=== PATIENT | female | born 2000 | race Caucasian/White ===

== ENCOUNTER 2020-11-26 01:04 | Emergency (ER) | payer BC, SELFPAY ==
[2020-11-26 01:07] VITALS: BP 118/83; PULSE 86; RESP 16; TEMP 36.6; O2SAT 97; BMI 33.5
--- NOTE | 2020-11-26 01:34 | RAD_ITS ---
STUDY: X-RAY - LEFT ANKLE REASON FOR EXAM: Female, 20 years old. Left ankle injury, pain TECHNIQUE: The radiographic view(s) of the ankle. COMPARISON: None. FINDINGS: Normal visualized distal tibia and fibula. Normal medial and lateral malleoli. Normal tibiotalar articulation and ankle mortise. Normal visualized talus and calcaneus. The visualized subtalar, talonavicular, calcaneocuboid and tarsal articulations are normal. There is no demonstrated fracture. Soft tissue swelling over the lateral malleolus. RAD/Ankle min 3 Views IMPRESSION: Soft tissue swelling over the lateral malleolus. No acute fracture or dislocation. Electronically Signed: Дмитрий Ardon MD at 1:57 EDT Tel , Service support ,
--- NOTE | 2020-11-26 01:34 | RAD_ITS ---
STUDY: X-RAY - LEFT TIBIA AND FIBULA REASON FOR EXAM: Female, 20 years old. Left lower leg injury and pain TECHNIQUE: AP and lateral radiographic view(s) of the tibia and fibula were obtained. COMPARISON: None. FINDINGS: Normal visualized tibia. Normal visualized fibula. There is no demonstrated acute fracture. The soft tissue structures are unremarkable. RAD/Tibia & Fibula 2 Views IMPRESSION: Normal x-ray examination of the tibia and fibula. Electronically Signed: Дмитрий Ardon MD at 1:58 EDT Tel , Service support ,
--- NOTE | 2020-11-26 02:49 | EDS_ITS ---
HPI History of Present Illness Chief Complaint: Lower Extremity Injury Narrative Narrative: Patient is a 20-year-old female who states approximately 2 hours prior to arrival she tripped while in the bathroom and rolled her left ankle. She denies striking her head or any loss of consciousness. She states she had some swelling develop after the trauma and has had difficulty walking on the left ankle and with concern for fracture was brought in for evaluation [facility] Medical History Anxiety Depression Allergy/AdvReac Type Severity Reaction Status Date / Time atomoxetine [From Strattera] Allergy SUICIDAL Verified 11/26/20 01:11 THOUGHTS diphenhydramine Allergy HALLUCINATI Verified 11/26/20 01:11 [From Benadryl] ONS Social History Smoking Status: Never smoker ROS ROS ED Constitutional Constitutional ED: Denies chills or fever(s) ENT ENT ED: Denies sore throat Cardiovascular Cardiovascular: Denies chest pain Respiratory/Chest Respiratory/Chest: Denies cough or dyspnea Gastrointestinal Gastrointestinal: Denies abdominal pain, diarrhea, nausea or vomiting Musculoskeletal Musculoskeletal: Reports other Details: Positive left ankle pain ; Denies myalgias Integumentary Denies rash Neurologic Neurologic: Denies headache(s) or paresthesias Hematologic/Lymphatic Hematologic/Lymphatic: Denies easy bleeding or easy bruising EXAM Physical Exam Const Vital Signs: 11/26/20 01:07 Temperature 97.8 F Temperature Source Temporal Pulse Rate 86 Respiratory Rate 16 Blood Pressure 118/83 H Blood Pressure Mean 94 Pulse Ox 97 Oxygen Delivery Method Room Air Positive well nourished and well developed General Appearance ED: well developed HEENT Negative for trauma Eyes PERRL and EOMs intact bilaterally Neck supple Resp normal respiratory effort and clear to auscultation bilaterally Cardio regular rate and regular rhythm GI normal to inspection, nondistended, normoactive bowel sounds, non-tender and non-distended Auscultation: normoactive bowel sounds Palpation: soft Extremity Extremity Narrative: Left lower extremity is neurovascularly intact. There is soft tissue swelling around the lateral malleolus but no obvious bony deformity or joint effusion. Achilles tendon is intact. However there is increased pain and laxity with stressing of the ATFL compared to the right. There is also mild pain palpation of the mid tibia. Remainder the exam is normal Neuro oriented x3 and CN's II-XII intact bilaterally Sensorium / Orientation: alert Psych mental status grossly normal Skin no rashes or lesions noted MDM MDM MDM Narrative Medical decision making narrative: Patient presented to the ER after mechanical fall therefore there is no need for cardiac or syncope work-up. With swelling and pain in the left ankle there is concern for fracture so x-rays were ob tained. X-rays revealed no acute fracture or dislocation. By exam as she has ligamentous laxity of the ATFL of the left compared to right she does have symptoms consistent with a grade 2 ankle sprain. Therefore should be placed in a walking boot and otherwise is safe for discharge with outpatient follow-up Radiography Diagnostic Testing: Radiology Impression Ankle X-Ray 11/26/20 01:34 IMPRESSION: Soft tissue swelling over the lateral malleolus. No acute fracture or dislocation. Electronically Signed: Дмитрий Ardon MD at 1:57 EDT Tel , Service support , Tibia/Fibula X-Ray 11/26/20 01:34 IMPRESSION: Normal x-ray examination of the tibia and fibula. Electronically Signed: Дмитрий Ardon MD at 1:58 EDT Tel , Service support , Discharge Plan Triage Chief Complaint: Lower Extremity Injury ED Provider: Leo Espinosa Dx/Rx/DC Orders Clinical Impression: Grade 2 ankle sprain Instructions: ED Ankle Sprain (Adult) Primary Care Provider: Juanita Dugan,Out of Referrals: Juanita Dugan,Out of [Primary Care Provider] - Disposition Disposition: Home, Self Care
== END 2020-11-26 03:02 | disposition home or self-care (01) ==
LOC: ED 03:01
PROVIDERS: Emergency Provider Emergency Medicine; PCP Pediatrics
DX: S93.402A Sprain of unspecified ligament of left ankle, initial encounter (principal); W01.0XXA Fall on same level from slipping, tripping and stumbling without subsequent striking against object, initial encounter; Y93.9 Activity, unspecified; Y92.9 Unspecified place or not applicable; Y99.9 Unspecified external cause status
CPT/HCPCS: 73590; 73610; 99282

== ENCOUNTER 2021-02-16 09:26 | Emergency (ER) | payer BC, SELFPAY ==
[2021-02-16 09:28] VITALS: BP 128/86; PULSE 88; RESP 16; TEMP 35.5; O2SAT 96; BMI 33.0
[2021-02-16 09:53] VITALS: BP 128/86; PULSE 88; RESP 16; TEMP 35.5; O2SAT 96
--- NOTE | 2021-02-16 10:12 | CT_ITS ---
EXAM: CT ABDOMEN AND PELVIS WITHOUT INTRAVENOUS CONTRAST : 2000 CLINICAL INDICATION: Kidney Stone TECHNIQUE: Helically acquired images were obtained of the abdomen and pelvis without intravenous contrast. This CT exam was performed using one or more of the following dose reduction techniques: automated exposure control, adjustment of the mA and/or kV according to patient size, and/or use of iterative reconstruction technique. This report was created using [employer]) report generation technology. COMPARISON: None. FINDINGS: LOWER THORAX: Unremarkable. Lung bases are clear. No cardiomegaly. No significant pericardial effusion. ABDOMEN: LIVER: Unremarkable. Homogeneous. GALLBLADDER AND BILE DUCTS: Unremarkable. No calcified gallstones. No gallbladder distention or wall edema. No intra- or extrahepatic biliary ductal dilation. PANCREAS: Unremarkable. No focal cystic mass. SPLEEN: Unremarkable. Normal size without focal cystic or solid mass. ADRENALS: Unremarkable. No nodules. KIDNEYS AND URETERS: Punctate stone noted within the lower pole of the left kidney. No hydronephrosis. STOMACH AND BOWEL: Unremarkable. No stomach or bowel distention. No focal inflammatory change. PELVIS: APPENDIX: Appendix is visualised and normal in appearance. BLADDER: Unremarkable. REPRODUCTIVE: Unremarkable as visualized. No mass. ABDOMEN and PELVIS: INTRAPERITONEAL SPACE: Unremarkable. No ascites or other fluid collection. No free air. BONES/JOINTS: Unremarkable. No suspicious lytic or blastic abnormality. SOFT TISSUES: Unremarkable. No discrete abdominal or pelvic wall hernia. VASCULATURE: Unremarkable. Abdominal aorta is non-dilated. LYMPH NODES: Unremarkable. No enlarged lymph nodes. CT/Abdomen/Pelvis without Cont IMPRESSION: Nonobstructive left renal stone. Individualized dose optimization techniques were used for this CT. at 1148 Reported and signed by: Néstor Boss MD Electronically Signed: Néstor Boss MD at 11:46 EST Tel , Service support ,
--- NOTE | 2021-02-16 10:14 | EDS_ITS ---
HPI HPI - GI History of Present Illness Chief Complaint: Abd Pain Narrative Narrative: Patient with past history of narcolepsy, has a service dog present, presents with right-sided flank pain that started at 830 this morning, approximately 2 hours ago. This feels similar to when she has had kidney stones in the past. She states that she does not have a urologist and her last kidney stone was approximately 2 years ago. No exacerbating or alleviating factors. She has mild nausea but no vomiting. She denies any hematuria but may have slight dysuria. No fevers or chills. No problems with bowel movements. No prior surgical history. [facility] Medical History Anxiety Depression Home Medications modafinil 200 mg PO DAILY 02/16/21 [History Last Taken Unknown] Allergy/AdvReac Type Severity Reaction Status Date / Time atomoxetine [From Strattera] Allergy SUICIDAL Verified 02/16/21 09:27 THOUGHTS diphenhydramine Allergy HALLUCINATI Verified 02/16/21 09:27 [From Benadryl] ONS Social History Smoking Status: Never smoker ROS ROS ED ROS Narrative Constitutional: No fever, no chills. HEENT: No sore throat. No neck pain. No loss of vision. No rhinorrhea. Cardiovascular: No chest pain. No palpitations. No pedal edema. Respiratory: No cough, no shortness of breath. Abdominal: No abdominal pain. Positive nausea. No vomiting. Genitourinary: Mild dysuria. No hematuria. Positive right flank pain. Musculoskeletal: No myalgias. No arthralgias. Neurologic: No headaches. No dizziness. No lightheadedness. Skin: No rash. No change in color. Psychiatric: No depression. No anxiety. EXAM Physical Exam Narrative Exam Narrative: Afebrile. Vital signs noted. HEENT: Normocephalic. Atraumatic. PERRL, EOMI. Neck soft and supple. No point tenderness or step off. Cardiovascular: Regular rate and rhythm. No murmurs, rubs, or gallops appreciated. Respiratory: No tachypnea. Lungs clear to auscultation bilaterally. Gastrointestinal: Abdomen soft, nontender, with normoactive bowel sounds. No rebound or guarding. Neurological: Awake. Alert. Nonfocal, nonlateralizing. Skin: No rash. Normal color. No pallor. Musculoskeletal: No pedal edema. Full range of motion extremities. Const Vital Signs: 02/16/21 09:28 02/16/21 09:53 Temperature 96 F L 96 F L Temperature Source Temporal Temporal Pulse Rate 88 88 Respiratory Rate 16 16 Blood Pressure 128/86 H 128/86 H Blood Pressure Mean 100 100 Pulse Ox 96 96 Oxygen Delivery Method Room Air Room Air MDM MDM MDM Narrative Medical decision making narrative: Comprehensive work-up was pursued. I will obtain a test, although she states that her last menstrual period was 2 weeks ago. We will check a CBC, BMP, and a CT scan along with urinalysis. Additionally, she drove herself here for analgesia she will be given Toradol, and ondansetron. Her BMP shows chloride of 110, otherwise unremarkable with a normal creatinine. Normal white count, hemoglobin stable at 12.0. Urine negative for infection. CT of the abdomen and pelvis without contrast shows no evidence of obstructing ureteral stone. She does have a punctate left renal stone. At this point in time, I feel she be discharged safely home to follow-up with a primary care physician. Return instructions were reviewed. Disposition is discharged home in stable condition. Lab Data Attestation: I reviewed the patient's lab results. Labs: Laboratory Results - last 24 hr 02/16/21 02/16/21 02/16/21 09:50 09:50 09:50 WBC RBC Hgb Hct MCV MCH MCHC RDW Std Deviation RDW Coeff of Jaime Plt Count MPV Immature Gran % (Auto) Neut % (Auto) Lymph % (Auto) [place] % (Auto) Eos % (Auto) Baso % (Auto) Absolute Neuts (auto) Absolute Lymphs (auto) Nucleated RBC % Sodium 139 Potassium 4.0 Chloride 110 H Carbon Dioxide 22.0 Anion Gap 7 BUN 9 Creatinine 0.62 Estim Creat Clear Calc 123.95 Est GFR (MDRD) Af Amer 155 Est GFR (MDRD) Non-Af 128 BUN/Creatinine Ratio 14.4 Glucose 91 Calcium 9.0 Serum , Qual NEGATIVE Urine Color Yellow Urine Clarity Clear Urine pH 6.5 Ur Specific [place] 1.015 Urine Protein Negative Urine Glucose (UA) Normal Urine Ketones Negative Urine Occult Blood Negative Urine Nitrite Negative Urine Bilirubin Negative Urine Urobilinogen Normal Ur Leukocyte Esterase Negative Urine RBC 0 SEEN Urine WBC 0 SEEN Ur Squamous Epith Cells 0-5 SEEN Urine Bacteria 0 SEEN Urine Mucus 0 SEEN 02/16/21 10:00 WBC 9.3 RBC 4.09 L Hgb 12.0 Hct 35.7 L MCV 87.3 MCH 29.3 MCHC 33.6 RDW Std Deviation 40.7 RDW Coeff of Jaime 12.9 Plt Count 284 MPV 10.3 Immature Gran % (Auto) 0.200 Neut % (Auto) 67.4 Lymph % (Auto) 24.7 [place] % (Auto) 5.9 Eos % (Auto) 1.6 Baso % (Auto) 0.2 Absolute Neuts (auto) 6.3 Absolute Lymphs (auto) 2.29 Nucleated RBC % 0 Sodium Potassium Chloride Carbon Dioxide Anion Gap BUN Creatinine Estim Creat Clear Calc Est GFR (MDRD) Af Amer Est GFR (MDRD) Non-Af BUN/Creatinine Ratio Glucose Calcium Serum , Qual Urine Color Urine Clarity Urine pH Ur Specific [place] Urine Protein Urine Glucose (UA) Urine Ketones Urine Occult Blood Urine Nitrite Urine Bilirubin Urine Urobilinogen Ur Leukocyte Esterase Urine RBC Urine WBC Ur Squamous Epith Cells Urine Bacteria Urine Mucus Radiography Diagnostic Testing: Clinical Impression(s) from Imaging Studies Abdomen/Pelvis CT 02/16/21 10:12 IMPRESSION: Nonobstructive left renal stone. Individualized dose optimization techniques were used for this CT. at 1148 Reported and signed by: Néstor Boss MD Electronically Signed: Néstor Boss MD at 11:46 EST Tel , Service support , Discharge Plan Triage Chief Complaint: Abd Pain ED Provider: Jelani Schulz Dx/Rx/DC Orders Clinical Impression: Right flank pain Instructions: ED Flank Pain, Uncertain Cause Prescriptions: No Action modafinil 100 mg tablet 200 mg PO DAILY RF: 0 Primary Care Provider: Care Physician,No Primary Referrals: Kole Dey MD [STAFF PHYSICIAN] - 02/23/21 Care Physician,No Primary [Primary Care Provider] - Disposition Disposition: Home, Self Care
[2021-02-16 10:37] LABS: Bacteria 0 SEEN /hpf (None Seen); Mucous, Urine 0 SEEN /hpf (<or=2+); Red Blood Cells-Urine 0 SEEN /hpf (0-5); White Blood Cells 0 SEEN /hpf (0-5)
[2021-02-16 10:39] LABS: Color, Urine Yellow (Yellow); Glucose, Dipstick Normal (Normal); Ketone-Dipstick Negative (Negative); Leukocyte Esterase-Dipstick Negative /ul (Negative); Nitrite-Dipstick Negative (Negative); Occult Blood-Urine Negative /ul (Negative); Protein-Dipstick Negative (Negative); Specific Gravity, Urine 1.015 (1.002-1.030); Urine Bilirubin Dipstick Negative (Negative); Urine Clarity Clear (Clear); Urine Urobilinogen Normal (Normal); Urine pH 6.5 (5.0 - 8.0)
[2021-02-16 10:39] LABS: Absolute Lymphocyte Count 2.29 X10^3/uL (0.83-4.51); Absolute Neutrophil Count 6.3 X10^3/uL (2.0-7.7); Basophil# 0.02 X10^3/uL; Basophil% 0.2 % (0-1); Eosinophil# 0.15 X10^3/uL; Eosinophils% 1.6 % (0-5); Hematocrit 35.7 % (37-47); Lymphocyte # 2.29 X10^3/ul (0.83-4.51); Lymphocyte % 24.7 % (19-41); Mean Corp Hgb Conc 33.6 g/dL (32-36); Mean Corpuscular Hgb 29.3 pg (27.0-32.0); Mean Corpuscular Volume 87.3 fL (81-99); Mean Platelet Vol. 10.3 fl (6.2-12.0); Monocyte# 0.55 X10^3/uL; Monocyte% 5.9 % (0-10); NRBC Flagged by Analyzer 0 % (0-5); Neutrophil # 6.26 X10^3/uL (2.7-7.7); Neutrophil % 67.4 % (47-70); Platelet Count 284 K/mm3 (150-450); RBC Distribution Width CV 12.9 % (11.6-14.6); RBC Distribution Width SD 40.7 fl (35.1-43.9); Red Blood Count 4.09 M/mm3 (4.2-5.4); White Blood Count 9.3 K/mm3 (4.4-11.0)
[2021-02-16 10:43] LABS: Internal QC Validated? YES +Cl - CLEAR BKGD; Pregnancy, Serum, hCG Quali. NEGATIVE Negative
[2021-02-16 10:46] LABS: Squamous Epithelial Cells - UA 0-5 SEEN /hpf (5-10)
[2021-02-16 10:50] LABS: Anion Gap 7 (5-15); BUN 9 mg/dL (7-18); BUN/Creat Ratio 14.4 RATIO (10-20); Chloride 110 mmol/L (98-107); Creatinine, Serum 0.62 mg/dL (0.55-1.02); EST Glomerular Filtration Rate 128 mL/min (>60); Est Glom Filt Rate - Afr Amer 155 mL/min (>60); Estimated Creatinine Clearance 123.95 ml/min; Glucose 91 mg/dL (74-106); Sodium Level 139 mmol/L (136-145)
[2021-02-16] MEDS: Ketorolac 30 MG/ML Syringe IV (11:08)
[2021-02-16] MEDS: Ondansetron 4 MG/2 ML Vial IV (11:08)
--- NOTE | 2021-02-16 11:24 | CM.ED ---
SW Note Referral Source: Case Find Referral Reason: No PCP SW noted on registration that patient has no PCP. SW met with patient. She reports she has a PCP through [facility] but can not recall his name. No further SW needs at this time. Libby DENIS
[2021-02-16 12:36] VITALS: BP 126/72; PULSE 72; RESP 18; TEMP 36.3; O2SAT 98
== END 2021-02-16 12:37 | disposition home or self-care (01) ==
PROVIDERS: Emergency Provider Emergency Medicine
DX: R10.9 Unspecified abdominal pain (principal); N20.0 Calculus of kidney; G47.419 Narcolepsy without cataplexy; F32.A Depression, unspecified; F41.9 Anxiety disorder, unspecified; Z87.442 Personal history of urinary calculi; Z79.899 Other long term (current) drug therapy
CPT/HCPCS: 74176; 80048; 81001; 84703; 85025; 96374; 96375; 99283; A4216; J2405